=== PATIENT | male | born 1965 | race Caucasian/White ===

== ENCOUNTER 2019-10-11 16:58 | Emergency (ER) | payer OTHER, SELFPAY ==
[2019-10-11 17:05] VITALS: BP 121/80; PULSE 76; RESP 16; TEMP 37.1; O2SAT 99
--- NOTE | 2019-10-11 17:08 | ED.GENADULT ---
HPI - General Adult General Chief complaint: Upper Respiratory Infection Stated complaint: CHILLS/STUFFY NOSE/COUGH/SNEEZING Time Seen by Provider: 10/11/19 17:14 Source: patient and RN notes reviewed Mode of arrival: ambulatory Limitations: no limitations History of Present Illness HPI narrative: This is a 54 years old male presents to the office for an evaluation of cold symptoms for four days. Symptoms include runny nose, sneezing, cough and sinus congestion. Denies fever, vomiting, or diarrhea. Denies sick contact. He does not smoke. Related Data Allergies Allergy/AdvReac Type Severity Reaction Status Date / Time morphine Allergy Unknown VOMITING Verified 10/11/19 17:04 Review of Systems Review of Systems: Narrative: CONSTITUTIONAL: Denies fever, chills, sweats. EYES: Denies visual changes, redness, discharge. ENT: Denies rhinorrhea, congestion, sore throat, otalgia. CARDIOVASCULAR: Denies chest pain, palpitation, edema. RESPIRATORY: Denies dyspnea, wheezing, cough GASTROINTESTINAL: Denies abdominal pain, nausea, vomiting, diarrhea. GENITOURINARY: Denies urinary symptoms or discharge SKIN: Denies rash MUSCULOSKELETAL: Denies acute back pain NEUROLOGIC: Denies lightheaded PMFSH Comments At time of signature, I agree with nursing past medical, surgical, social and family history. There is no relevant family history pertinent to the presenting complaint. Exam Narrative: Exam Narrative: GENERAL: This is a well-nourished, well-developed patient, in no apparent distress. EYES: PERRL. Sclera clear/white. Vision is grossly intact. EARS: External ears normal, auditory canals clear and without drainage, TMs normal without perforation. Hearing grossly intact. NOSE: External nose normal with no obvious nasal discharge, nares without redness, no rhinorrhea. THROAT: Mucous membranes moist, posterior pharynx clear. NECK: Neck supple, non-tender without lymphadenopathy, masses or thyromegaly. CARDIOVASCULAR: Regular rate and rhythm without murmurs, gallops, or rubs. RESPIRATORY: Clear to auscultation. Breath sounds equal bilaterally. No wheezes, rales, or rhonchi. GASTROINTESTINAL: Abdomen soft, non-tender, nondistended. Bowel sounds are active. No hepato-splenomegaly, or palpable masses. No guarding. SKIN: warm, intact with no suspicious lesions or rash, good texture and turgor. NEURO: awake, alert, and oriented to person, place and time. There were no obvious focal neurologic abnormalities. Steady gait EXTREMITIES: Normal range of motion. No edema. No calf tenderness. Negative Homans sign bilaterally. BACK: Nontender without deformity or crepitance. No flank tenderness. [place] Coma Scale Eye Opening: Spontaneous 4 [place] Coma Scale Motor: Obeys Commands 6 [place] Coma Scale Verbal: Oriented 5 Course Vital Signs Vital signs: Vital Signs Temperature 98.7 F 10/11/19 17:05 Pulse Rate 76 10/11/19 17:05 Respiratory Rate 16 10/11/19 17:05 Blood Pressure 121/80 10/11/19 17:05 Pulse Oximetry 99 10/11/19 17:05 Temperature 98.7 F 10/11/19 17:05 Pulse Rate 76 10/11/19 17:05 Respiratory Rate 16 10/11/19 17:05 Blood Pressure 121/80 10/11/19 17:05 Pulse Oximetry 99 10/11/19 17:05 Medical Decision Making MDM Narrative Medical decision making narrative: Discharge instructions reviewed with patient, as well as provided in writing per nursing staff. The instructions also include specific and strict return/GO TO THE ER as well as f/u information. All questions have been answered, and the patient deny any further questions with discharge and discharge plan. Differential Diagnosis Differential Diagnosis: pneumonia, Allergic Rhinitis, Upper respiratory cough syndrome, Pharyngitis, Sinusitis, Bronchitis, otitis media, viral URI, Asthma/reactive airway disease, influenza Vital Signs Vital Signs: Vital Signs Temperature 98.7 F 10/11/19 17:05 Pulse Rate 76 10/11/19 17:05 Respiratory Rate 16
== END 2019-10-11 17:31 | disposition home or self-care (01) ==
PROVIDERS: Emergency Provider Nurse Practitioner
DX: J06.9 Acute upper respiratory infection, unspecified (principal)
CPT/HCPCS: 87804; 99213; G0463

== ENCOUNTER 2022-08-18 15:26 | Emergency (ER) | payer OTHER, SELFPAY ==
--- NOTE | 2022-08-18 15:36 | ED.URI ---
HPI - URI/Sore Throat General Chief Complaint: Upper Respiratory Infection Stated Complaint: runny nose,wants covid test Time Seen by Provider: 08/18/22 15:36 Source: patient Mode of arrival: ambulatory Limitations: no limitations History of Present Illness HPI Narrative: Mr. Shepard is a 57-year-old male patient presenting to the clinic today with complaints of a runny nose. He is requesting a COVID test today in the clinic. States that he did 1 at home and had a possible faint positive. Reports he was at a wedding on August 04 with his parents and reports that his father was tested positive for COVID. He reports he started having a runny nose and postnasal drip about 3 days ago. He denies any other symptoms. States he had COVID back in August. MD elicited complaint: sore throat and nasal congestion Related Data Home Medications Medication Instructions Recorded Confirmed pantoprazole 40 mg tablet,delayed mg PO 08/18/22 release Allergies Allergy/AdvReac Type Severity Reaction Status Date / Time morphine Allergy Unknown VOMITING Verified 08/18/22 15:43 Review of Systems Review of Systems: Pertinent positives per HPI. Patient denies any fever, chills, rash, headache, visual changes, dizziness, cough, shortness of breath, chest pain, palpitations, nausea, vomiting, diarrhea, constipation, abdominal pain, or any urinary issues. PMFSH Comments At the time of my signature, I reviewed and agree with the nursing past medical, surgical, social, and family history. There is no relevant family history pertinent to the patient complaint. Exam Narrative: General: Well-developed, well nourished, in no apparent distress Head: Normocephalic, atraumatic Eyes: Pupils equally round and reactive to light bilaterally, EOM intact, sclera and conjunctive clear, no discharge, lids normal Ears: TMs intact and clear, ear canals clear, no drainage, grossly hearing normal. Nose: Nares patent, clear nasal discharge, no inflammation, no sinus tenderness. Mouth: Oral pharynx without lesions or masses, good dentition, MMM. Postnasal drip Neck: Supple, trachea midline, no enlargement of anterior or posterior cervical nodes, no thyroid masses or goiter palpable. Cardio: Regular rate and rhythm, s1 and s2 normal, no murmur appreciated. Resp: Clear to auscultation bilaterally, no rhonchi, rales, wheezing or rubs Course Course Emergency Course: Portions of this record may have been created with voice recognition software. Level of Care: Express Care Visit Vital Signs Vital signs: Vital Signs Temperature 37.4 C 08/18/22 15:44 Pulse Rate 81 08/18/22 15:44 Respiratory Rate 16 08/18/22 15:44 Blood Pressure 139/71 08/18/22 15:44 Pulse Oximetry 97 08/18/22 15:44 Temperature 37.4 C 08/18/22 15:44 Pulse Rate 81 08/18/22 15:44 Respiratory Rate 16 08/18/22 15:44 Blood Pressure 139/71 08/18/22 15:44 Pulse Oximetry 97 08/18/22 15:44 Vital signs reviewed MDM - URI/Sore Throat MDM Narrative Medical decision making narrative: At the time of visit patient is resting comfortably on the exam table. COVID test was negative in the clinic today. I suspect patient has a URI/postnasal drip. Supportive measures were discussed with the patient he voiced understanding discharge instructions and agrees to treatment plan. Differential Diagnosis Differential diagnosis: Likely upper respiratory infection, otitis media, sinusitis, viral infection, bronchitis, influenza, pharyngitis and other (COVID) Discharge Plan Discharge Clinical Impression: PND (post-nasal drip) Upper respiratory infection Qualifiers: URI type: unspecified URI Qualified Code(s): J06.9 - Acute upper respiratory infection, unspecified Patient Disposition: Home, Self-Care Condition: Stable Instructions: Antibiotic Form, Pharyngitis (ED), Postnasal Drip (DC) Additional Instructions: COVID testing was negative in the clinic tolana
[2022-08-18 15:44] VITALS: BP 139/71; PULSE 81; RESP 16; TEMP 37.4; O2SAT 97
== END 2022-08-18 16:00 | disposition home or self-care (01) ==
PROVIDERS: Emergency Provider Nurse Practitioner Family; PCP Family Medicine Sports Medicine
DX: J06.9 Acute upper respiratory infection, unspecified (principal); R09.82 Postnasal drip; Z20.822 Contact with and (suspected) exposure to COVID-19
CPT/HCPCS: 87426; 99213; C9803; G0463

== ENCOUNTER 2024-10-16 17:06 | Emergency (ER) | payer OTHER, SELFPAY ==
[2024-10-16 17:17] VITALS: BP 127/83; PULSE 60; RESP 16; TEMP 36.3; O2SAT 99
--- NOTE | 2024-10-16 18:00 | ED_ITS ---
HPI - General Adult General Chief complaint: Upper Respiratory Infection Stated complaint: Sore Throat Source: patient History of Present Illness HPI narrative: Patient presents for evaluation of sore throat. Symptom onset this morning. He also feels like his run down . He denies any fever, chills, nausea, vomiting, diarrhea, cough, shortness of breath. Some individuals at work have been sick but he is not aware of any specific medical diagnosis. He has not tried taking any OTC medications for his symptoms. He does not smoke. He has a history of GERD with esophagitis but this feels different. Related Data Home Medications ?Medication ?Instructions ?Recorded ?Confirmed ?Last Taken ?Type pantoprazole 40 mg tablet,delayed 40 mg PO DAILY 08/18/22 08/18/22 Unknown History release Allergies Allergy/AdvReac Type Severity Reaction Status Date / Time morphine Allergy Unknown VOMITING Verified 10/16/24 17:17 Review of Systems Review of Systems: CONSTITUTIONAL: Reports feeling run down . Denies fever, chills, or sweats. EYES: Denies visual changes, redness, or discharge. ENT: Reports sore throat. Denies rhinorrhea, congestion, or otalgia. CARDIOVASCULAR: Denies chest pain, palpitations, or edema. RESPIRATORY: Denies cough or dyspnea. GASTROINTESTINAL: Denies abdominal pain, nausea, vomiting, or diarrhea. GENITOURINARY: Denies dysuria or hematuria. SKIN: Denies rash or itching. MUSCULOSKELETAL: Denies back pain, joint pain, or myalgia. NEUROLOGIC: Denies headache, numbness, dizziness, or weakness. PSYCHIATRIC: Denies anxiety or depression. [facility] Past Medical History Medical History GERD (gastroesophageal reflux disease) Surgical History Surgical History History of elbow surgery History of shoulder surgery Family History Family History Mother Family history non-contributory Social History Social History Smoking status: Never smoker Substance use: never Gender identity (if verbalized by the patient): Male Spiritual care concerns: No Exam Narrative: GENERAL: Well-appearing, well-nourished, and in no acute distress. HEAD: Normocephalic, atraumatic. EYES: PERRLA and EOMI. ENT: Nares clear, no rhinorrhea or epistaxis. Mucous membranes moist. Oropharynx without tonsillar hypertrophy exudate or other lesions. Bilateral TMs pearly kumari nonbulging NECK: Supple. No adenopathy or masses. No carotid bruits or JVD CHEST: Clear to auscultation. No respiratory distress. No wheezes rales or rhonchi HEART: Regular rate and rhythm. No murmur heard. Normal peripheral pulses. ABDOMEN: Soft, nontender, nondistended, normal active bowel sounds. EXTREMITIES: Normal range of motion. No edema. SKIN: Warm, dry, no rash. NEURO: No focal deficits. Alert and oriented x3. PSYCH: Normal mood and affect. Course Course Emergency Course: This is a 59-year-old male who presented for evaluation of sore throat. Strep, COVID, flu were all negative. We did discuss potentially taking antibiotics in the event that his rapid strep was a false negative. He declined. Will send throat culture. Increase hydration. [id number] agents for symptom management. Follow up with primary provider. Go to the ER for worsening symptoms. Patient in agreement with plan care. Level of Care: Express Care Visit Vital Signs Vital signs: Vital Signs Temperature 36.3 C L 10/16/24 17:17 Pulse Rate 60 10/16/24 17:17 Respiratory Rate 16 10/16/24 17:17 Blood Pressure 127/83 10/16/24 17:17 Pulse Oximetry 99 10/16/24 17:17 Temperature 36.3 C L 10/16/24 17:17 Pulse Rate 60 10/16/24 17:17 Respiratory Rate 16 10/16/24 17:17 Blood Pressure 127/83 10/16/24 17:17 Pulse Oximetry 99 10/16/24 17:17 Medical Decision Making Vital Signs Vital Signs: Vital Signs Temperature 36.3 C L 10/16/24 17:17 Pulse Rate 60 10/16/24 17:17 Respiratory Rate 16 10/16/24 17:17 Blood Pressure 127/83 10/16/24 17:17 Pulse Oximetry 99 10/16/24 17:17 Temperature 36.3 C L 10/16/24 17:17 Pulse Rate 60 10/16/24 17:17 Respiratory Rate 16 10/16/24 17:17 Blood Pressure 127/83 10/16/24 17:17 Pulse Oximetry 99 10/16/24 17:17 Discharge Plan Discharge Clinical Impression: Pharyngitis Patient Disposition: Home, Self-Care Condition: Stable Instructions: Antibiotic Form, Pharyngitis (ED) Patient Language: Turkmen Prescriptions: No Action pantoprazole 40 mg tablet,delayed release (DR/EC) 40 mg PO DAILY Follow-up/Referrals: Lashon Dunlap DO [Physician] - Time of Disposition: 18:00
[2024-10-16 18:04] LABS: EDCOVIDSCREEN Negative (Negative); EDINFLUASCREEN Negative (Negative); EDINFLUBSCREEN Negative (Negative); EDSTREPNEGPOS1 Negative (Negative)
== END 2024-10-16 18:02 | disposition home or self-care (01) ==
PROVIDERS: Emergency Provider Nurse Practitioner
DX: J02.9 Acute pharyngitis, unspecified (principal); Z20.822 Contact with and (suspected) exposure to COVID-19
CPT/HCPCS: 87081; 87426; 87804; 87880; 99213; G0463